=== PATIENT | female | born 1985 | race Caucasian/White ===

== ENCOUNTER 2016-10-02 23:02 | Emergency (ER) | payer MEDICAID, OTHER ==
[~2016-10-02] VITALS: Ht 160 cm; Wt 54.0 kg
[2016-10-02 23:07] VITALS: Ht 160 cm; Wt 54.0 kg
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
[2016-10-03] MEDS ORDERED: IBUPROFEN 200 MG TAB PO ONE (01:00)
[2016-10-03] MEDS ORDERED: NAPR-260 PO (01:54)
== END 2016-10-03 02:04 | disposition home or self-care (01) ==
LOC: FTE 23:02
DX: N64.4 Mastodynia (principal); J45.909 Unspecified asthma, uncomplicated; F17.210 Nicotine dependence, cigarettes, uncomplicated
CPT/HCPCS: Z7502; Z7610; 99283

== ENCOUNTER 2017-04-09 21:17 | Emergency (ER) | payer OTHER ==
[~2017-04-09] VITALS: Ht 160 cm; Wt 54.4 kg
[~2017-04-09 21:17] MED LIST: NAPR-260 PO
[2017-04-09 21:20] VITALS: Ht 160 cm; Wt 54.4 kg
[2017-04-09] MEDS ORDERED: HYDROCODONE/APAP (5/325) TAB PO ONE (23:30)
--- NOTE | 2017-04-10 00:20 | RADRPT ---
PROCEDURE: XR Forearm. CLINICAL INDICATION: Left forearm pain status post fall. TECHNIQUE: AP and lateral views of the left forearm were obtained. COMPARISON: No prior studies are available for comparison. FINDINGS: There is a subtle low density involving the mid shaft left ulna, suggestion of bone of the cortex on the lateral view of the left radius is normal in appearance. The visualized carpal bones are normal in appearance. The alignment of the elbow joint is normal. IMPRESSION: 1. Linear low density midshaft of the left ulna with suggestion of buckling of the cortex, concerni ng for fracture, age indeterminate. Given the patient of trauma, this may correlate with a small non displaced fracture with buckling of the cortex. RPTAT: HGAS .Martín Fuller MD, Date Time Electronically viewed and signed by .Martín Fuller MD, MD on 04/10/2017 00:19 .S/
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
[2017-04-10] MEDS ORDERED: HYDR-906 PO (00:39)
[2017-04-10] MEDS ORDERED: IBUP-1542 PO (00:39)
== END 2017-04-10 01:05 | disposition home or self-care (01) ==
LOC: FTE 21:17
DX: S52.202A Unspecified fracture of shaft of left ulna, initial encounter for closed fracture (principal); J45.909 Unspecified asthma, uncomplicated; F17.210 Nicotine dependence, cigarettes, uncomplicated; W01.0XXA Fall on same level from slipping, tripping and stumbling without subsequent striking against object, initial encounter; Y92.9 Unspecified place or not applicable
CPT/HCPCS: 29105; 73090; Z7502; Z7610